=== PATIENT | female | born 1955 | race Caucasian/White ===

== ENCOUNTER → 2020-09-04 | Outpatient (CLI) | payer MEDICARE, OTHER ==
--- NOTE | 2020-09-05 19:59 | MAM ---
EXAM DESCRIPTION: 3D Screening BILATERAL : Digital Mammography. CLINICAL HISTORY: 65 years Female screening . No complaints. No family history of breast cancer. Menarche age unknown. Childbirth age 43. Menopause age unknown. No HRT. Lifetime risk of developing breast cancer (Tyrer-Cuzick model)(%): 8.6. COMPARISON: Baseline study at this facility. No prior reports available. TECHNIQUE: Bilateral CC and MLO projection full-field images, digital tomosynthesis mammographic technique. Bilateral digital 2-D full-field MLO images. CAD available for 2-D images. FINDINGS: The breast parenchymal density pattern is: Scattered areas of fibroglandular density. Fibroglandular tissue bilaterally is in a nodular pattern. Focal asymmetry abutting the posterior nipple line and extending toward the 3:00 sector 3 cm from the nipple. Not associated with calcifications. No skin thickening or nipple retraction No focal, stellate mass or density, focal asymmetry , and no suspicious microcalcifications right breast. IMPRESSION: BI-RADS CATEGORY: 0 - INCOMPLETE- Need additional imaging evaluation. RECOMMENDATIONS: FOLLOW-UP: Recall for additional imaging: Targeted left breast ultrasound of the region of interest. Optional digital left breast 2-D and tomosynthesis imaging, depending on ultrasound findings. Written communication concerning the IMPRESSION and Follow-up, will be mailed to the patient and referring health care provider. Electronically signed by: Amanuel Jack MD 09/05/2020 7:57 PM [employer]
== END ==
LOC: MAMMO 09:26
PROVIDERS: ATTEND Urology
DX: Z12.31 Encounter for screening mammogram for malignant neoplasm of breast (principal)

== ENCOUNTER → 2020-09-27 | Outpatient (CLI) | payer MEDICARE, OTHER ==
--- NOTE | 2020-09-28 16:21 | US ---
EXAM DESCRIPTION: Breast,Left: Ultrasound. CLINICAL HISTORY: 65 yearsFemaleABNORMAL MAMMO COMPARISON: Bilateral screening digital breast tomosynthesis September 04. TECHNIQUE: Transcutaneous scanning of the left breast utilizing jones-scale and Doppler modes. Scanning performed by the engineering technician ; observation by Dr. Jack. FINDINGS: The breast is mostly fatty with increased fibroglandular tissue in the retroareolar region. Attention to the left breast, 3 cm from the nipple at 3:00. This is focal and surrounded by fatty tissues. No distinct cysts, no dominant solid mass, no fluid collection, no large calcifications. IMPRESSION: Benign exam. BIRAD CATEGORY: 2 BENIGN FINDINGS. RECOMMENDATIONS: FOLLOW UP: Routine digital bilateral mammographic screening, one year interval from August 2015. Written communication explaining the IMPRESSION and follow-up, will be mailed to the patient and referring health care provider. The FINDINGS and the FOLLOW-UP plan were reviewed in person with the patient after the examination. According to the [employer], yearly mammograms are recommended starting at age 40 and continuing as long as a woman is in good health. Any breast change noted on a breast self-exam should be reported promptly to the patient's healthcare provider. Breast MRI is recommended for women with an approximately 20-25% or greater lifetime risk of breast cancer, including women with a strong family history of breast or ovarian cancer and women who have been treated for Hodgkin's disease. A negative mammographic report should not delay tissue diagnosis in patients with significant clinical history or physical findings. Extremely dense breast tissue limits the sensitivity of digital mammography. Electronically signed by: Amanuel Jack MD 09/28/2020 4:19 PM [facility]
== END ==
LOC: MAMMO 07:54
PROVIDERS: ATTEND Emergency Medicine
DX: R92.8 Other abnormal and inconclusive findings on diagnostic imaging of breast (principal)